=== PATIENT | male | born 1950 | race Caucasian/White ===

== ENCOUNTER → 2021-02-05 | Outpatient (CLI) | payer MEDICARE, OTHER ==
--- NOTE | 2021-02-05 10:02 | RAD ---
XR RIBS 2 VIEWS RT History: Reason: ANTERIOR 6TH-8TH RIGHT RIB PAIN / Spl. Instructions: / History: Technique: Multiple views of the right ribs. Comparison: None. Findings: No displaced rib fractures. Imaged lung is unremarkable. Mild right acromioclavicular DJD. Impression: 1. No displaced rib fractures. Electronically signed by: Tommie Mckeon DO (02/05/2021 10:00 AM) [facility]
== END ==
LOC: RAD 09:26
PROVIDERS: ATTEND Nurse Practitioner Family
DX: R07.81 Pleurodynia (principal); M19.011 Primary osteoarthritis, right shoulder
CPT/HCPCS: 71100